=== PATIENT | male | born 1950 | race Caucasian/White ===

== ENCOUNTER 2018-08-24 05:34 | Day surgery (SDC) | payer OTHER | END 2018-08-24 11:16 | disposition home or self-care (01) | LOC: AMB-ENDOS 05:34 → CIR.AMB 12:45 → AMB-ENDOS 12:45 | DX: D12.3 Benign neoplasm of transverse colon (principal) ==

== ENCOUNTER 2019-11-01 08:15 | Day surgery (SDC) | payer OTHER | END 2019-11-01 15:55 | disposition home or self-care (01) | LOC: AMB-ENDOS 08:15 | PROVIDERS: ATTEND Surgery | DX: D12.0 Benign neoplasm of cecum (principal); D12.3 Benign neoplasm of transverse colon; D12.8 Benign neoplasm of rectum; K57.30 Diverticulosis of large intestine without perforation or abscess without bleeding ==